=== PATIENT | female | born 1975 | race Caucasian/White ===

== ENCOUNTER 2023-10-06 19:06 | Inpatient (IN) | payer MEDICAID ==
[~2023-10-06] VITALS: Ht 162.6 cm; Wt 127.0 kg
[~2023-10-06 19:06] MED LIST: ALBU8.5H17 INH
[2023-10-06 20:17] LABS: BASOPHILS # (AUTO) 0.1 X10'3 (0-0.2); BASOPHILS % (AUTO) 0.6 % (0-1); EOSINOPHILS % (AUTO) 0.1 % (0-6); HEMATOCRIT 39.9 % (35.0-45.0); HEMOGLOBIN 13.8 g/dl (12.0-16.0); LYMPHOCYTES # (AUTO) 0.9 X10'3 (1.1-4.8); LYMPHOCYTES % (AUTO) 7.5 % (21-51); MEAN CORPUSCULAR HEMOGLOBIN 31.1 PG (27.0-31.0); MEAN CORPUSCULAR HGB CONC 34.7 g/dL (33.0-36.5); MEAN CORPUSCULAR VOLUME 89.5 FL (78-98); MEAN PLATELET VOLUME 7.4 FL (7.4-10.4); MONOCYTES # (AUTO) 0.6 X10'3 (0-0.9); MONOCYTES % (AUTO) 5.3 % (2-12); NEUTROPHILS # (AUTO) 10.3 X10'3 (1.8-7.7); NEUTROPHILS % (AUTO) 86.5 % (42-75); PLATELET COUNT 309 X10'3 (140-440); RED BLOOD COUNT 4.45 X10'6 (4.20-5.60); RED CELL DISTRIBUTION WIDTH 14.8 % (11.5-14.5); WHITE BLOOD COUNT 11.8 X10'3 (4.5-11.0)
[2023-10-06 20:27] LABS: ALANINE AMINOTRANSFERASE 34 U/L (12-78); ALBUMIN 3.6 G/DL (3.4-5.0); ALBUMIN/GLOBULIN RATIO 0.7 (1.1-1.5); ALKALINE PHOSPHATASE 78 IU/L (46-116); ANION GAP 10 (8-16); ASPARTATE AMINO TRANSFERASE 17 U/L (10-37); BILIRUBIN,TOTAL 0.8 MG/DL (0.1-1.0); BLOOD UREA NITROGEN 25 MG/DL (7-18); BUN/CREATININE RATIO 20.7 (10.0-20.0); CALCIUM 9.7 MG/DL (8.5-10.1); CHLORIDE 100 MMOL/L (99-107); CREATININE 1.21 MG/DL (0.40-0.90); GLUCOSE 173 MG/DL (70-104); POTASSIUM 3.9 MMOL/L (3.5-5.1); SODIUM 139 MMOL/L (135-145); TOTAL CARBON DIOXIDE 29.2 MMOL/L (24-32); TOTAL PROTEIN 8.6 G/DL (6.4-8.2); eCRCL 49 ML/MIN; eGFR 47 ML/MIN
[2023-10-06] MEDS: normal saline 1000ml 1,000 ML IV ONE (22:27)
[2023-10-06] MEDS: acetaminophen 325mg tablet PO ONE (22:27)
[2023-10-06 23:18] LABS: BILIRUBIN,URINE NEGATIVE (Neg); CLARITY,URINE CLOUDY (Clear); COLOR,URINE YELLOW (Yellow); GLUCOSE, URINE NEGATIVE (Neg); KETONES,URINE 15 mg/dl (Neg); LEUKOCYTE ESTERASE ,URINE TRACE (Neg); NITRITES, URINE POSITIVE (Neg); OCCULT BLOOD,URINE TRACE-INTACT (Neg); PH,URINE 5.5 (4.8-8.0); PROTEIN,URINE 100 mg/dl (Neg); UROBILINOGEN,URINE 0.2 E.U/dL (0.2-1.0)
[2023-10-06 23:21] LABS: UA COLLECTION TYPE CLN CATCH MIDSTREAM
[2023-10-06 23:26] LABS: BACTERIA,URINE 4+ /HPF (Neg); SQUAMOUS EPITHELIAL CELL,UR MODERATE /LPF (FEW)
[2023-10-06 23:27] LABS: RBC,URINE 0-2 /HPF (0-2)
[2023-10-07] VITALS (11 sets, daily range): BP systolic 107–182; BP diastolic 59–103; PULSE 83–101; RESP 13–18; TEMP 97–97.7; O2SAT 94–98
[2023-10-07] MEDS: enalaprilat dihydrate 2.5mg/2ml vial IV ONE (00:25)
[2023-10-07] MEDS: CefTRIAXone/D5W-Rocephin 1gm 50 ML IV ONE (00:30)
[2023-10-07] MEDS ORDERED: magnesium sulf-water 2g/50mL 50 ML IV PRN (01:30)
[2023-10-07] MEDS ORDERED: magnesium sulf-water 4G/100mL 100 ML IV PRN (01:30)
[2023-10-07] MEDS ORDERED: mag hydrox/Alum hydrox/simeth 30ml oral suspension PO PRN (01:30)
[2023-10-07] MEDS ORDERED: potassium Cl 40MEQ/1/2NS 520ml 520 ML IV PRN (01:30)
[2023-10-07] MEDS ORDERED: potassium Cl 20 mEq SR tablet PO PRN (01:30)
[2023-10-07] MEDS ORDERED: acetaminophen 325mg tablet PO PRN (01:30)
[2023-10-07] MEDS ORDERED: HYDROcodone/acetaminophen 5mg/325mg tablet PO PRN (01:30)
[2023-10-07] MEDS ORDERED: PERFLUTREN PROTEIN-A MICROSPHR (Optison) 0.22 MG/ML 3ML VIAL IV PRN (01:55)
[2023-10-07] MEDS ORDERED: UNABLE TO OBTAIN (02:52)
[2023-10-07] MEDS: normal saline 1000ml 1,000 ML IV SCH (02:54)
[2023-10-07] MEDS ORDERED: glucagon, human recombinant 1mg kit SUBCUT PRN (04:00)
[2023-10-07] MEDS ORDERED: DEXTROSE 15 GM of carb/4 tabs (each vial/BOTTLE has 4 tablets) PO PRN ×2 (04:00)
[2023-10-07] MEDS ORDERED: dextrose 50%-water 50ml dispensing syringe IV PRN ×2 (04:00)
[2023-10-07 04:21] LABS: URINE AMPHETAMINE SCREEN NEGATIVE (Neg); URINE BARBITUATE SCREEN NEGATIVE (Neg); URINE BENZODIAZEPINES SCREEN NEGATIVE (Neg); URINE CANNABINOID SCREEN NEGATIVE (Neg); URINE COCAINE SCREEN NEGATIVE (Neg); URINE METHADONE SCREEN NEGATIVE (Neg); URINE OPIATE SCREEN NEGATIVE (Neg); URINE PHENCYCLIDINE SCREEN NEGATIVE (Neg)
[2023-10-07] MEDS: clopidogrel 75mg tablet PO ONE (05:25)
[2023-10-07] MEDS: aspirin 325mg tablet PO ONE (05:25)
[2023-10-07] MEDS: labetalol 20mg/4ml (5mg/ml) syringe IV ONE (05:26)
[2023-10-07] MEDS: acetaminophen 325mg tablet PO PRN (05:44)
[2023-10-07 06:22] LABS: INR 1.1 INR; PROTHROMBIN TIME 11.4 SECONDS (9.0-12.0)
[2023-10-07 06:51] LABS: ALANINE AMINOTRANSFERASE 19 U/L (12-78); ALBUMIN 3.1 G/DL (3.4-5.0); ALBUMIN/GLOBULIN RATIO 0.7 (1.1-1.5); ALKALINE PHOSPHATASE 65 IU/L (46-116); ANION GAP 12 (8-16); ASPARTATE AMINO TRANSFERASE 16 U/L (10-37); BILIRUBIN,TOTAL 0.8 MG/DL (0.1-1.0); BLOOD UREA NITROGEN 24 MG/DL (7-18); BUN/CREATININE RATIO 23.5 (10.0-20.0); CHLORIDE 101 MMOL/L (99-107); CHOL/HDL RATIO 8.1 (0.00-4.99); CHOLESTEROL 317 MG/DL (0-200); CREATININE 1.02 MG/DL (0.40-0.90); FREE T4 (FREE THYROXINE) 0.83 NG/DL (0.73-1.40); GLUCOSE 134 MG/DL (70-104); HDL CHOLESTEROL 39 MG/DL (35-60); LDL CHOLESTEROL 237 MG/DL (50-100); MAGNESIUM 1.5 MG/DL (1.5-2.4); PHOSPHORUS 2.5 MG/DL (2.3-4.5); POTASSIUM 3.4 MMOL/L (3.5-5.1); SODIUM 138 MMOL/L (135-145); THYROID STIMULATING HORMONE 49.43 ulU/ml (0.34-4.50); TOTAL CARBON DIOXIDE 25.2 MMOL/L (24-32); TOTAL PROTEIN 7.7 G/DL (6.4-8.2); TRIGLYCERIDES 165 MG/DL (20-135); eCRCL 58 ML/MIN; eGFR 58 ML/MIN
[2023-10-07 06:56] LABS: APTT 28 SECONDS (22-32)
[2023-10-07 07:43] LABS: BASOPHILS # (AUTO) 0.1 X10'3 (0-0.2); BASOPHILS % (AUTO) 0.7 % (0-1); EOSINOPHILS # (AUTO) 0.1 X10'3 (0-0.9); EOSINOPHILS % (AUTO) 0.5 % (0-6); HEMATOCRIT 37.1 % (35.0-45.0); HEMOGLOBIN 12.7 g/dl (12.0-16.0); LYMPHOCYTES # (AUTO) 1.4 X10'3 (1.1-4.8); LYMPHOCYTES % (AUTO) 13.4 % (21-51); MEAN CORPUSCULAR HEMOGLOBIN 30.8 PG (27.0-31.0); MEAN CORPUSCULAR HGB CONC 34.2 g/dL (33.0-36.5); MEAN CORPUSCULAR VOLUME 90.1 FL (78-98); MEAN PLATELET VOLUME 8.1 FL (7.4-10.4); MONOCYTES # (AUTO) 0.7 X10'3 (0-0.9); MONOCYTES % (AUTO) 7.1 % (2-12); NEUTROPHILS # (AUTO) 8.2 X10'3 (1.8-7.7); NEUTROPHILS % (AUTO) 78.3 % (42-75); PLATELET COUNT 273 X10'3 (140-440); RED BLOOD COUNT 4.11 X10'6 (4.20-5.60); RED CELL DISTRIBUTION WIDTH 15.2 % (11.5-14.5); WHITE BLOOD COUNT 10.4 X10'3 (4.5-11.0)
[2023-10-07] MEDS: K and/or MAG REPLACEMENT MC SCH (08:00)
[2023-10-07] MEDS: docusate sod 100mg capsule PO SCH (08:00)
[2023-10-07] MEDS ORDERED: hydrALAZINE 20mg/ml inj. IV PRN (08:15)
[2023-10-07] MEDS: aspirin 81mg, enteric-coated 1 TAB TABLET.DR PO SCH (08:17)
[2023-10-07] MEDS: gabapentin 100mg capsule PO SCH (08:17)
[2023-10-07] MEDS: atorvastatin 20mg tablet PO SCH (08:17)
[2023-10-07] MEDS: clopidogrel 75mg tablet PO SCH (08:17)
[2023-10-07] MEDS: heparin, porcine 5000 units/ml vial SQ SCH (08:18)
[2023-10-07] MEDS: INSULIN LISPRO 100 UNIT/ML INSULN.PEN MULTI-DOSE SQ SCH (09:00)
[2023-10-07] MEDS: potassium Cl 20 mEq SR tablet PO PRN (09:33)
[2023-10-07] MEDS: CefTRIAXone/D5W-Rocephin 1gm 50 ML IV SCH (19:26)
[2023-10-07] MEDS ORDERED: METF-438 PO (21:17)
[2023-10-07] MEDS ORDERED: GABA-530 PO (21:18)
[2023-10-07] MEDS ORDERED: LEVO100T PO (21:21)
[2023-10-07] MEDS ORDERED: LISI20TA28 PO (21:23)
[2023-10-07] MEDS ORDERED: RISP1TAB69 PO ×2 (21:26→21:29)
[2023-10-07] MEDS ORDERED: SEMA1PEN3 SUBCUT ×3 (21:29→21:39)
[2023-10-07] MEDS: insulin glargine (Lantus) pen - multi-dose SQ SCH (21:51)
[2023-10-08] VITALS (8 sets, daily range): BP systolic 138–173; BP diastolic 80–97; PULSE 81–98; RESP 11–20; TEMP 97.3–98.4; O2SAT 92–99
[2023-10-08 06:25] LABS: BASOPHILS # (AUTO) 0.1 X10'3 (0-0.2); BASOPHILS % (AUTO) 1.1 % (0-1); EOSINOPHILS # (AUTO) 0.2 X10'3 (0-0.9); EOSINOPHILS % (AUTO) 2.2 % (0-6); HEMATOCRIT 33.9 % (35.0-45.0); HEMOGLOBIN 11.8 g/dl (12.0-16.0); LYMPHOCYTES % (AUTO) 25.4 % (21-51); MEAN CORPUSCULAR HEMOGLOBIN 31.2 PG (27.0-31.0); MEAN CORPUSCULAR HGB CONC 34.9 g/dL (33.0-36.5); MEAN CORPUSCULAR VOLUME 89.5 FL (78-98); MEAN PLATELET VOLUME 7.5 FL (7.4-10.4); MONOCYTES # (AUTO) 0.6 X10'3 (0-0.9); MONOCYTES % (AUTO) 7.8 % (2-12); NEUTROPHILS % (AUTO) 63.5 % (42-75); PLATELET COUNT 250 X10'3 (140-440); RED BLOOD COUNT 3.78 X10'6 (4.20-5.60); RED CELL DISTRIBUTION WIDTH 14.8 % (11.5-14.5); WHITE BLOOD COUNT 7.9 X10'3 (4.5-11.0)
[2023-10-08 06:38] LABS: ALANINE AMINOTRANSFERASE 36 U/L (12-78); ALBUMIN 2.8 G/DL (3.4-5.0); ALBUMIN/GLOBULIN RATIO 0.7 (1.1-1.5); ALKALINE PHOSPHATASE 62 IU/L (46-116); ANION GAP 9 (8-16); ASPARTATE AMINO TRANSFERASE 17 U/L (10-37); BILIRUBIN,TOTAL 0.6 MG/DL (0.1-1.0); BLOOD UREA NITROGEN 23 MG/DL (7-18); BUN/CREATININE RATIO 20.2 (10.0-20.0); CALCIUM 8.9 MG/DL (8.5-10.1); CHLORIDE 100 MMOL/L (99-107); CREATININE 1.14 MG/DL (0.40-0.90); GLUCOSE 151 MG/DL (70-104); MAGNESIUM 1.4 MG/DL (1.5-2.4); PHOSPHORUS 3.6 MG/DL (2.3-4.5); POTASSIUM 3.9 MMOL/L (3.5-5.1); SODIUM 137 MMOL/L (135-145); TOTAL CARBON DIOXIDE 28.3 MMOL/L (24-32); eCRCL 52 ML/MIN; eGFR 51 ML/MIN
[2023-10-08] MEDS ORDERED: levoTHYROXINE 25mcg tablet PO SCH (07:00)
[2023-10-08 07:04] LABS: APTT 28 SECONDS (22-32)
[2023-10-08] MEDS: lisinopril 10 MG tablet PO SCH (08:12)
[2023-10-08] MEDS: magnesium Cl slow-release 64mg tablet PO PRN (08:18)
[2023-10-08] MEDS: metFORMIN 500mg tablet PO SCH (19:15)
[2023-10-09] VITALS (9 sets, daily range): BP systolic 102–169; BP diastolic 64–103; PULSE 83–101; RESP 13–18; TEMP 97–98.3; O2SAT 93–98
[2023-10-09 06:10] LABS: BASOPHILS # (AUTO) 0.1 X10'3 (0-0.2); BASOPHILS % (AUTO) 0.8 % (0-1); EOSINOPHILS # (AUTO) 0.2 X10'3 (0-0.9); EOSINOPHILS % (AUTO) 2.8 % (0-6); HEMATOCRIT 34.7 % (35.0-45.0); LYMPHOCYTES % (AUTO) 23.8 % (21-51); MEAN CORPUSCULAR HGB CONC 34.7 g/dL (33.0-36.5); MEAN CORPUSCULAR VOLUME 89.4 FL (78-98); MEAN PLATELET VOLUME 7.6 FL (7.4-10.4); MONOCYTES # (AUTO) 0.7 X10'3 (0-0.9); MONOCYTES % (AUTO) 8.5 % (2-12); NEUTROPHILS # (AUTO) 5.4 X10'3 (1.8-7.7); NEUTROPHILS % (AUTO) 64.1 % (42-75); PLATELET COUNT 250 X10'3 (140-440); RED BLOOD COUNT 3.88 X10'6 (4.20-5.60); RED CELL DISTRIBUTION WIDTH 14.8 % (11.5-14.5); WHITE BLOOD COUNT 8.4 X10'3 (4.5-11.0)
[2023-10-09 06:14] LABS: APTT 27 SECONDS (22-32); PROTHROMBIN TIME 10.6 SECONDS (9.0-12.0)
[2023-10-09 06:15] LABS: ALANINE AMINOTRANSFERASE 33 U/L (12-78); ALBUMIN 2.8 G/DL (3.4-5.0); ALBUMIN/GLOBULIN RATIO 0.7 (1.1-1.5); ALKALINE PHOSPHATASE 64 IU/L (46-116); ANION GAP 5 (8-16); ASPARTATE AMINO TRANSFERASE 13 U/L (10-37); BILIRUBIN,TOTAL 0.4 MG/DL (0.1-1.0); BLOOD UREA NITROGEN 23 MG/DL (7-18); BUN/CREATININE RATIO 22.8 (10.0-20.0); CALCIUM 8.8 MG/DL (8.5-10.1); CHLORIDE 101 MMOL/L (99-107); CREATININE 1.01 MG/DL (0.40-0.90); GLUCOSE 152 MG/DL (70-104); MAGNESIUM 1.4 MG/DL (1.5-2.4); PHOSPHORUS 3.1 MG/DL (2.3-4.5); POTASSIUM 4.2 MMOL/L (3.5-5.1); SODIUM 135 MMOL/L (135-145); TOTAL CARBON DIOXIDE 28.7 MMOL/L (24-32); eCRCL 58 ML/MIN; eGFR 58 ML/MIN
[2023-10-09] MEDS ORDERED: levoTHYROXINE 100mcg tablet PO SCH (07:00)
[2023-10-09] MEDS: EMPAGLIFLOZIN 10 MG TABLET PO SCH (08:18)
[2023-10-09] MEDS: levoTHYROXINE 125mcg tablet PO SCH (08:18)
[2023-10-09] MEDS: lisinopril 10 MG tablet PO SCH (08:19)
[2023-10-09] MEDS ORDERED: METF-1203 PO (10:44)
[2023-10-09] MEDS ORDERED: CEFD300C3 PO (10:44)
[2023-10-09] MEDS ORDERED: CLOP75TA34 PO (10:44)
[2023-10-09] MEDS ORDERED: ASPI-1071 PO (10:44)
[2023-10-09] MEDS ORDERED: ATOR20TA66 PO (10:44)
[2023-10-09] MEDS ORDERED: LEVO125T8 PO (10:44)
[2023-10-09] MEDS ORDERED: EMPA10TA PO (10:44)
[2023-10-09] MEDS: ondansetron/PF 4mg/2ml inj IV PRN (18:01)
[2023-10-10] VITALS (7 sets, daily range): BP systolic 91–146; BP diastolic 49–76; PULSE 79–89; RESP 11–16; TEMP 97.2–97.9; O2SAT 94–96
[2023-10-10 06:16] LABS: BASOPHILS # (AUTO) 0.1 X10'3 (0-0.2); EOSINOPHILS # (AUTO) 0.2 X10'3 (0-0.9); EOSINOPHILS % (AUTO) 2.6 % (0-6); HEMATOCRIT 34.3 % (35.0-45.0); LYMPHOCYTES % (AUTO) 21.8 % (21-51); MEAN CORPUSCULAR HEMOGLOBIN 31.3 PG (27.0-31.0); MEAN CORPUSCULAR HGB CONC 35.1 g/dL (33.0-36.5); MEAN CORPUSCULAR VOLUME 89.3 FL (78-98); MEAN PLATELET VOLUME 7.6 FL (7.4-10.4); MONOCYTES # (AUTO) 0.8 X10'3 (0-0.9); MONOCYTES % (AUTO) 9.2 % (2-12); NEUTROPHILS # (AUTO) 5.8 X10'3 (1.8-7.7); NEUTROPHILS % (AUTO) 65.4 % (42-75); PLATELET COUNT 251 X10'3 (140-440); RED BLOOD COUNT 3.84 X10'6 (4.20-5.60); RED CELL DISTRIBUTION WIDTH 15.1 % (11.5-14.5); WHITE BLOOD COUNT 8.9 X10'3 (4.5-11.0)
[2023-10-10 06:27] LABS: PROTHROMBIN TIME 10.8 SECONDS (9.0-12.0)
[2023-10-10 06:36] LABS: ALANINE AMINOTRANSFERASE 30 U/L (12-78); ALBUMIN 2.8 G/DL (3.4-5.0); ALBUMIN/GLOBULIN RATIO 0.7 (1.1-1.5); ALKALINE PHOSPHATASE 64 IU/L (46-116); ANION GAP 7 (8-16); ASPARTATE AMINO TRANSFERASE 14 U/L (10-37); BILIRUBIN,TOTAL 0.5 MG/DL (0.1-1.0); BLOOD UREA NITROGEN 22 MG/DL (7-18); BUN/CREATININE RATIO 21.8 (10.0-20.0); CHLORIDE 99 MMOL/L (99-107); CREATININE 1.01 MG/DL (0.40-0.90); GLUCOSE 128 MG/DL (70-104); MAGNESIUM 1.4 MG/DL (1.5-2.4); PHOSPHORUS 3.8 MG/DL (2.3-4.5); POTASSIUM 4.3 MMOL/L (3.5-5.1); SODIUM 134 MMOL/L (135-145); TOTAL CARBON DIOXIDE 28.1 MMOL/L (24-32); eCRCL 58 ML/MIN; eGFR 58 ML/MIN
[2023-10-10] MEDS ORDERED: magnesium sulf-water 2g/50mL 50 ML IV PRN (06:50)
[2023-10-10] MEDS ORDERED: magnesium Cl slow-release 64mg tablet PO PRN (06:50)
[2023-10-10] MEDS ORDERED: magnesium sulf-water 4G/100mL 100 ML IV PRN (06:50)
[2023-10-10] MEDS: normal saline 500ml IV soln 500 ML IV ONE (11:12)
[2023-10-10] MEDS ORDERED: iohexol 350MG/ML 100ml bottle IV ONE (14:45)
[2023-10-11] MEDS: levetiracetam 250mg tablet PO SCH (02:19)
[2023-10-11 06:00] VITALS: BP 130/70; PULSE 80; RESP 14; TEMP 97.3; O2SAT 95
[2023-10-11 06:47] LABS: BASOPHILS # (AUTO) 0.1 X10'3 (0-0.2); BASOPHILS % (AUTO) 1.1 % (0-1); EOSINOPHILS # (AUTO) 0.2 X10'3 (0-0.9); EOSINOPHILS % (AUTO) 2.4 % (0-6); HEMATOCRIT 32.4 % (35.0-45.0); LYMPHOCYTES % (AUTO) 22.7 % (21-51); MEAN CORPUSCULAR HGB CONC 34.1 g/dL (33.0-36.5); MEAN CORPUSCULAR VOLUME 90.9 FL (78-98); MEAN PLATELET VOLUME 7.9 FL (7.4-10.4); MONOCYTES # (AUTO) 0.7 X10'3 (0-0.9); MONOCYTES % (AUTO) 8.3 % (2-12); NEUTROPHILS # (AUTO) 5.8 X10'3 (1.8-7.7); NEUTROPHILS % (AUTO) 65.5 % (42-75); PLATELET COUNT 241 X10'3 (140-440); PROTHROMBIN TIME 10.7 SECONDS (9.0-12.0); RED BLOOD COUNT 3.56 X10'6 (4.20-5.60); WHITE BLOOD COUNT 8.8 X10'3 (4.5-11.0)
[2023-10-11 06:57] LABS: ALANINE AMINOTRANSFERASE 24 U/L (12-78); ALBUMIN 2.7 G/DL (3.4-5.0); ALBUMIN/GLOBULIN RATIO 0.7 (1.1-1.5); ALKALINE PHOSPHATASE 62 IU/L (46-116); ANION GAP 9 (8-16); ASPARTATE AMINO TRANSFERASE 14 U/L (10-37); BILIRUBIN,TOTAL 0.4 MG/DL (0.1-1.0); BLOOD UREA NITROGEN 29 MG/DL (7-18); BUN/CREATININE RATIO 25.2 (10.0-20.0); CHLORIDE 99 MMOL/L (99-107); CREATININE 1.15 MG/DL (0.40-0.90); GLUCOSE 136 MG/DL (70-104); MAGNESIUM 1.4 MG/DL (1.5-2.4); PHOSPHORUS 4.6 MG/DL (2.3-4.5); POTASSIUM 4.2 MMOL/L (3.5-5.1); SODIUM 135 MMOL/L (135-145); TOTAL CARBON DIOXIDE 27.5 MMOL/L (24-32); TOTAL PROTEIN 6.8 G/DL (6.4-8.2); eCRCL 51 ML/MIN; eGFR 50 ML/MIN
[2023-10-11 11:00] VITALS: BP 120/63; PULSE 85; RESP 14; TEMP 98.3; O2SAT 93
[2023-10-11] MEDS: magnesium hydroxide 30ml (MOM) UD suspension PO PRN (11:04)
[2023-10-11 15:00] VITALS: BP 130/75; PULSE 86; RESP 15; TEMP 98.3; O2SAT 96
[2023-10-11] MEDS: bisacodyl 10mg suppository rectal RC STA (15:41)
== END 2023-10-11 18:40 | DRG 720 ==
LOC: ER 19:07 → ED HOLD 10-07 01:34 → PCU 3S 10-07 02:58
PROVIDERS: ADMIT Surgery; ATTEND Internal Medicine
PROC: 4A00X4Z Measurement of Central Nervous Electrical Activity, External Approach (ICD-10-PCS; principal; 2023-10-10)
PROC: B3251ZZ Computerized Tomography (CT Scan) of Bilateral Common Carotid Arteries using Low Osmolar Contrast (ICD-10-PCS; 2023-10-10)
PROC: B32G1ZZ Computerized Tomography (CT Scan) of Bilateral Vertebral Arteries using Low Osmolar Contrast (ICD-10-PCS; 2023-10-10)
PROC: B32R1ZZ Computerized Tomography (CT Scan) of Intracranial Arteries using Low Osmolar Contrast (ICD-10-PCS; 2023-10-10)
PROC: B3281ZZ Computerized Tomography (CT Scan) of Bilateral Internal Carotid Arteries using Low Osmolar Contrast (ICD-10-PCS; 2023-10-10)
DX: A41.9 Sepsis, unspecified organism (principal); G93.40 Encephalopathy, unspecified; I67.4 Hypertensive encephalopathy; E11.40 Type 2 diabetes mellitus with diabetic neuropathy, unspecified; E11.319 Type 2 diabetes mellitus with unspecified diabetic retinopathy without macular edema; G45.9 Transient cerebral ischemic attack, unspecified; B35.1 Tinea unguium; E66.01 Morbid (severe) obesity due to excess calories; Z20.822 Contact with and (suspected) exposure to COVID-19; E86.0 Dehydration; R56.9 Unspecified convulsions; I10 Essential (primary) hypertension; F31.81 Bipolar II disorder; N39.0 Urinary tract infection, site not specified; Z88.0 Allergy status to penicillin; Z79.899 Other long term (current) drug therapy; Z68.42 Body mass index [BMI] 45.0-49.9, adult
CPT/HCPCS: 36415; 70450; 70496; 70498; 71045; 80053; 80061; 80305; 81001; 82948; 83036; 83605; 83735; 84100; 84439; 84443; 84484; 85025; 85610; 85730; 87040; 87077; 87081; 87088; 87186; 87811; 93005; 93306; 93880; 95816; 97116; 97161; 97530; 99285; G0378; J0696; J1644; J1815; J2405; J3490; J7030; J7040; Q9967

== ENCOUNTER 2023-12-23 16:54 | Emergency (ER) | payer MEDICAID ==
[~2023-12-23] VITALS: Ht 172.7 cm; Wt 121.0 kg
[~2023-12-23 16:54] MED LIST changes: -ALBU8.5H17 INH; +ASPI-611 PO; +ATOR20TA66 PO; +BUPR-561; +CLOP75TA33 PO; +EMPA10TA PO; +GABA-530 PO; +LEVE250T PO; +LEVO125T PO; +LISI20TA28 PO; +METF-436 PO; +RISP1TAB69 PO; +SEMA1PEN3 SUBCUT
[2023-12-23 19:19] LABS: BASOPHILS # (AUTO) 0.1 X10'3 (0-0.2); BASOPHILS % (AUTO) 1.2 % (0-1); EOSINOPHILS # (AUTO) 0.1 X10'3 (0-0.9); EOSINOPHILS % (AUTO) 1.3 % (0-6); HEMATOCRIT 36.1 % (35.0-45.0); HEMOGLOBIN 12.1 g/dl (12.0-16.0); LYMPHOCYTES # (AUTO) 1.4 X10'3 (1.1-4.8); LYMPHOCYTES % (AUTO) 19.8 % (21-51); MEAN CORPUSCULAR HEMOGLOBIN 30.3 PG (27.0-31.0); MEAN CORPUSCULAR HGB CONC 33.6 g/dL (33.0-36.5); MEAN CORPUSCULAR VOLUME 90.3 FL (78-98); MONOCYTES # (AUTO) 0.6 X10'3 (0-0.9); MONOCYTES % (AUTO) 8.3 % (2-12); NEUTROPHILS % (AUTO) 69.4 % (42-75); PLATELET COUNT 276 X10'3 (140-440); RED CELL DISTRIBUTION WIDTH 14.8 % (11.5-14.5); WHITE BLOOD COUNT 7.2 X10'3 (4.5-11.0)
[2023-12-23 19:35] LABS: ALANINE AMINOTRANSFERASE 29 U/L (12-78); ALBUMIN 3.3 G/DL (3.4-5.0); ALBUMIN/GLOBULIN RATIO 0.7 (1.1-1.5); ALKALINE PHOSPHATASE 88 IU/L (46-116); ANION GAP 10 (8-16); ASPARTATE AMINO TRANSFERASE 21 U/L (10-37); BILIRUBIN,TOTAL 0.4 MG/DL (0.1-1.0); BLOOD UREA NITROGEN 28 MG/DL (7-18); BUN/CREATININE RATIO 21.4 (10.0-20.0); CALCIUM 9.4 MG/DL (8.5-10.1); CHLORIDE 106 MMOL/L (99-107); CREATININE 1.31 MG/DL (0.40-0.90); GLUCOSE 99 MG/DL (70-104); SODIUM 138 MMOL/L (135-145); TOTAL CARBON DIOXIDE 22.4 MMOL/L (24-32); TOTAL PROTEIN 7.9 G/DL (6.4-8.2); eCRCL 52 ML/MIN; eGFR 43 ML/MIN
[2023-12-23 19:40] LABS: POTASSIUM 4.8 MMOL/L (3.5-5.1)
[2023-12-23 20:05] LABS: BILIRUBIN,URINE SMALL (Neg); CLARITY,URINE SLIGHTLY CLOUDY (Clear); GLUCOSE, URINE >=1000 mg/dl (Neg); KETONES,URINE NEGATIVE (Neg); LEUKOCYTE ESTERASE ,URINE NEGATIVE (Neg); NITRITES, URINE NEGATIVE (Neg); OCCULT BLOOD,URINE NEGATIVE (Neg); PROTEIN,URINE 30 mg/dl (Neg); UROBILINOGEN,URINE 0.2 E.U/dL (0.2-1.0)
[2023-12-23 20:16] LABS: COLOR,URINE DARK YELLOW (Yellow); UA COLLECTION TYPE CLN CATCH MIDSTREAM
[2023-12-23 20:19] LABS: BACTERIA,URINE 1+ /HPF (Neg); MUCUS STRANDS FEW /LPF (Neg); RBC,URINE 0-2 /HPF (0-2); RENAL CELLS, URINE MODERATE /HPF; SQUAMOUS EPITHELIAL CELL,UR MANY /LPF (FEW); TRANSITIONAL EPI CELLS,URINE FEW /HPF; WBC,URINE 0-4 /HPF (0-4)
[2023-12-23 20:20] LABS: COARSE GRANULAR CAST 0-3 /LPF (NEGATIVE); FINE GRANULAR CAST 0-3 /LPF (NEGATIVE)
[2023-12-24 18:54] VITALS: BP 135/75; PULSE 76; RESP 18; TEMP 98.6; O2SAT 96
== END 2023-12-24 18:56 | disposition home or self-care (01) ==
LOC: ER 16:54
DX: R53.1 Weakness (principal); Z88.0 Allergy status to penicillin; Z88.6 Allergy status to analgesic agent; Z88.8 Allergy status to other drugs, medicaments and biological substances; Z83.3 Family history of diabetes mellitus
CPT/HCPCS: 36415; 80053; 81001; 82948; 84484; 85025; 99285

== ENCOUNTER 2023-12-25 19:23 | Emergency (ER) | payer MEDICAID ==
[2023-12-25 19:27] VITALS: TEMP 97.6
[2023-12-25 19:57] LABS: BASOPHILS # (AUTO) 0.1 X10'3 (0-0.2); BASOPHILS % (AUTO) 1.2 % (0-1); EOSINOPHILS # (AUTO) 0.1 X10'3 (0-0.9); EOSINOPHILS % (AUTO) 1.7 % (0-6); HEMATOCRIT 35.4 % (35.0-45.0); LYMPHOCYTES # (AUTO) 1.4 X10'3 (1.1-4.8); LYMPHOCYTES % (AUTO) 19.5 % (21-51); MEAN CORPUSCULAR HEMOGLOBIN 30.2 PG (27.0-31.0); MEAN CORPUSCULAR HGB CONC 33.9 g/dL (33.0-36.5); MEAN CORPUSCULAR VOLUME 89.2 FL (78-98); MEAN PLATELET VOLUME 7.7 FL (7.4-10.4); MONOCYTES # (AUTO) 0.7 X10'3 (0-0.9); MONOCYTES % (AUTO) 9.5 % (2-12); NEUTROPHILS # (AUTO) 4.8 X10'3 (1.8-7.7); NEUTROPHILS % (AUTO) 68.1 % (42-75); PLATELET COUNT 270 X10'3 (140-440); RED BLOOD COUNT 3.97 X10'6 (4.20-5.60); RED CELL DISTRIBUTION WIDTH 14.5 % (11.5-14.5)
[2023-12-25] MEDS: normal saline 1000ml 1,000 ML IV ONE (20:03)
[2023-12-25 20:20] LABS: BILIRUBIN,URINE NEGATIVE (Neg); CLARITY,URINE CLEAR (Clear); COLOR,URINE YELLOW (Yellow); GLUCOSE, URINE >=1000 mg/dl (Neg); KETONES,URINE NEGATIVE (Neg); LEUKOCYTE ESTERASE ,URINE NEGATIVE (Neg); NITRITES, URINE NEGATIVE (Neg); OCCULT BLOOD,URINE NEGATIVE (Neg); PH,URINE 5.5 (4.8-8.0); PROTEIN,URINE NEGATIVE (Neg); UROBILINOGEN,URINE 0.2 E.U/dL (0.2-1.0)
[2023-12-25 20:20] LABS: ALBUMIN 3.1 G/DL (3.4-5.0); ANION GAP 8 (8-16); BLOOD UREA NITROGEN 25 MG/DL (7-18); BUN/CREATININE RATIO 19.5 (10.0-20.0); CALCIUM 9.2 MG/DL (8.5-10.1); CHLORIDE 106 MMOL/L (99-107); CREATININE 1.28 MG/DL (0.40-0.90); FREE T4 (FREE THYROXINE) 1.87 NG/DL (0.73-1.40); GLUCOSE 136 MG/DL (70-104); POTASSIUM 4.3 MMOL/L (3.5-5.1); SODIUM 137 MMOL/L (135-145); THYROID STIMULATING HORMONE 0.37 ulU/ml (0.34-4.50); TOTAL CARBON DIOXIDE 22.9 MMOL/L (24-32); eGFR 44 ML/MIN
[2023-12-25 20:22] LABS: UA COLLECTION TYPE CLN CATCH MIDSTREAM
[2023-12-25 20:25] LABS: BACTERIA,URINE FEW /HPF (Neg); MUCUS STRANDS FEW /LPF (Neg); RBC,URINE 0-2 /HPF (0-2); RENAL CELLS, URINE FEW /HPF; SQUAMOUS EPITHELIAL CELL,UR MODERATE /LPF (FEW); WBC,URINE 0-4 /HPF (0-4)
[2023-12-25 20:26] LABS: FINE GRANULAR CAST 0-3 /LPF (NEGATIVE)
[2023-12-26 04:09] VITALS: BP 110/73; PULSE 84; RESP 21; O2SAT 97
== END 2023-12-25 22:08 | disposition home or self-care (01) ==
LOC: ER 19:24
DX: R53.1 Weakness (principal); G40.A09 Absence epileptic syndrome, not intractable, without status epilepticus; Z88.0 Allergy status to penicillin; Z79.82 Long term (current) use of aspirin; Z79.899 Other long term (current) drug therapy
CPT/HCPCS: 36415; 80048; 81001; 84439; 84443; 85025; 93005; 96360; 99285; J7030

== ENCOUNTER 2024-02-21 08:38 | Emergency (ER) | payer MEDICAID ==
[~2024-02-21] VITALS: Ht 172.7 cm; Wt 112.0 kg
[2024-02-21] MEDS: levetiracetam-NACL1000mg/100ml 100 ML IV ONE (10:27)
[2024-02-21] MEDS: normal saline 1000ML IV soln IVB ONE (10:58)
[2024-02-21 11:02] LABS: BASOPHILS # (AUTO) 0.1 X10'3 (0-0.2); BASOPHILS % (AUTO) 0.9 % (0-1); EOSINOPHILS # (AUTO) 0.1 X10'3 (0-0.9); EOSINOPHILS % (AUTO) 1.1 % (0-6); HEMATOCRIT 39.7 % (35.0-45.0); HEMOGLOBIN 13.5 g/dl (12.0-16.0); LYMPHOCYTES % (AUTO) 16.3 % (21-51); MEAN CORPUSCULAR HEMOGLOBIN 29.5 PG (27.0-31.0); MEAN CORPUSCULAR HGB CONC 33.9 g/dL (33.0-36.5); MEAN CORPUSCULAR VOLUME 86.8 FL (78-98); MEAN PLATELET VOLUME 8.2 FL (7.4-10.4); MONOCYTES # (AUTO) 0.6 X10'3 (0-0.9); MONOCYTES % (AUTO) 9.1 % (2-12); NEUTROPHILS # (AUTO) 4.5 X10'3 (1.8-7.7); NEUTROPHILS % (AUTO) 72.6 % (42-75); PLATELET COUNT 221 X10'3 (140-440); RED BLOOD COUNT 4.58 X10'6 (4.20-5.60); RED CELL DISTRIBUTION WIDTH 14.6 % (11.5-14.5); WHITE BLOOD COUNT 6.2 X10'3 (4.5-11.0)
[2024-02-21] MEDS ORDERED: clopidogrel 75mg tablet PO SCH (11:30)
[2024-02-21 11:42] LABS: ALBUMIN 2.8 G/DL (3.4-5.0); ANION GAP 6 (8-16); BLOOD UREA NITROGEN 13 MG/DL (7-18); BUN/CREATININE RATIO 13.7 (10.0-20.0); CALCIUM 7.9 MG/DL (8.5-10.1); CHLORIDE 106 MMOL/L (99-107); CREATININE 0.95 MG/DL (0.40-0.90); GLUCOSE 103 MG/DL (70-104); LIPASE 24 U/L (16-77); MAGNESIUM 1.4 MG/DL (1.5-2.4); SODIUM 143 MMOL/L (135-145); TOTAL CARBON DIOXIDE 31.4 MMOL/L (24-32); eCRCL 71 ML/MIN; eGFR 62 ML/MIN
[2024-02-21] MEDS: metFORMIN 500mg tablet PO ONE (11:54)
[2024-02-21] MEDS: clopidogrel 75mg tablet PO SCH (11:55)
[2024-02-21] MEDS: lisinopril 10 MG tablet PO ONE (11:56)
[2024-02-21 12:38] LABS: ALANINE AMINOTRANSFERASE 43 U/L (12-78); ALBUMIN/GLOBULIN RATIO 0.7 (1.1-1.5); ALKALINE PHOSPHATASE 79 IU/L (46-116); ASPARTATE AMINO TRANSFERASE 31 U/L (10-37); BILIRUBIN,DIRECT 0.1 MG/DL (0-0.3); BILIRUBIN,TOTAL 0.7 MG/DL (0.1-1.0); TOTAL PROTEIN 6.8 G/DL (6.4-8.2)
[2024-02-21] MEDS: potassium Cl 20 mEq SR tablet PO ONE (13:58)
[2024-02-21] MEDS: magnesium sulf-water 2g/50mL 50 ML IV ONE (14:05)
[2024-02-21] MEDS: levoTHYROXINE 75mcg tablet PO STA (14:10)
[2024-02-21] MEDS: potassium CL 10mEq/100ml bag 100 ML IV ONE (14:13)
[2024-02-21] MEDS ORDERED: MAGN400C PO (14:14)
[2024-02-21] MEDS ORDERED: POTA-206 PO (14:14)
[2024-02-21 15:02] LABS: BILIRUBIN,URINE SMALL (Neg); CLARITY,URINE SLIGHTLY CLOUDY (Clear); COLOR,URINE YELLOW (Yellow); GLUCOSE, URINE NEGATIVE (Neg); KETONES,URINE TRACE mg/dl (Neg); LEUKOCYTE ESTERASE ,URINE NEGATIVE (Neg); NITRITES, URINE NEGATIVE (Neg); OCCULT BLOOD,URINE NEGATIVE (Neg); PROTEIN,URINE 100 mg/dl (Neg); UROBILINOGEN,URINE 0.2 E.U/dL (0.2-1.0)
[2024-02-21 15:04] LABS: UA COLLECTION TYPE OTHER
[2024-02-21 15:14] LABS: BACTERIA,URINE FEW /HPF (Neg); MUCUS STRANDS MANY /LPF (Neg); RBC,URINE 0-2 /HPF (0-2); SQUAMOUS EPITHELIAL CELL,UR MODERATE /LPF (FEW)
[2024-02-21 15:15] LABS: FINE GRANULAR CAST 0-3 /LPF (NEGATIVE); WBC CASTS 0-3 /LPF (NEGATIVE)
[2024-02-21 15:16] LABS: URINE AMPHETAMINE SCREEN NEGATIVE (Neg); URINE BARBITUATE SCREEN NEGATIVE (Neg); URINE BENZODIAZEPINES SCREEN NEGATIVE (Neg); URINE CANNABINOID SCREEN NEGATIVE (Neg); URINE COCAINE SCREEN NEGATIVE (Neg); URINE METHADONE SCREEN NEGATIVE (Neg); URINE OPIATE SCREEN NEGATIVE (Neg); URINE PHENCYCLIDINE SCREEN NEGATIVE (Neg)
[2024-02-21] MEDS: potassium Cl 20 mEq SR tablet PO STA (15:34)
[2024-02-21 16:39] VITALS: BP 148/96; PULSE 82; RESP 18; TEMP 98.2; O2SAT 97
[2024-02-21] MEDS ORDERED: levetiracetam inj 1,000 MG in normal saline 100ml IV soln 100 ML IV SCH (20:00)
== END 2024-02-21 16:41 | disposition home or self-care (01) ==
LOC: ER 08:38
DX: R53.1 Weakness (principal); E83.42 Hypomagnesemia; E87.6 Hypokalemia; I48.91 Unspecified atrial fibrillation; I10 Essential (primary) hypertension; G47.30 Sleep apnea, unspecified; E11.9 Type 2 diabetes mellitus without complications; Z88.0 Allergy status to penicillin; Z79.82 Long term (current) use of aspirin; Z79.899 Other long term (current) drug therapy; Z86.73 Personal history of transient ischemic attack (TIA), and cerebral infarction without residual deficits; Z87.440 Personal history of urinary (tract) infections
CPT/HCPCS: 36415; 71045; 80048; 80076; 80305; 81001; 83690; 83735; 85025; 87088; 93005; 96365; 96366; 96368; 99285; J1953; J3480; J7030